=== PATIENT | female | born 1990 | race Caucasian/White ===

== ENCOUNTER 2017-04-07 10:05 | Emergency (ER) | payer BC ==
[~2017-04-07] VITALS: Ht 165.1 cm; Wt 69.0 kg
[~2017-04-07 10:05] MED LIST: DICL75 PO
[2017-04-07 10:09] VITALS: BP 136/71; PULSE 101; RESP 18; TEMP 98.3; O2SAT 97
--- NOTE | 2017-04-07 10:58 | PD ---
HPI Chief Complaint: Laceration/Skin Injury Time Seen by Provider: 10:44 Travel History International Travel<30 days: No Contact w/Intl Traveler<30days: No Traveled to known affect area: No History of Present Illness HPI Patient comes to emergency department complaining of laceration to her left forearm that occurred around 3 AM. Patient states that she got locked out of her house and was unable to get inside and had to break a window to get in the house. Patient reports cleaning this with soap and water prior to coming to the emergency department. Patient denies any pain with this or radiation of pain. Touching it makes it hurt without radiation. Denies any numbness or tingling. Reports last tetanus shot more than 5 years ago. PFS Past Medical History Autoimmune Disease: No Blood Disorders: No Cardiovascular Problems: Yes (HEART MURMUR) Diminished Hearing: No Gastrointestinal Disorders: Yes Immunizations Current: Yes ?: Not LMP: 03/02/2017-IRREGULAR PER PT Past Surgical History Surgical History: No Previous Surgery Abdominal Surgery: No Genitourinary Surgery: No Other Surgery: No Social History Alcohol Use: Yes (COUPLE TIMES PER WEEK) Tobacco Use: No Substance Use: No Allergies-Medications (Allergen,Severity, Reaction): Coded Allergies: apple (Verified Allergy, Severe, THROAT SWELLING, 04/07/17) nut - unspecified (Verified Allergy, Severe, THROAT SWELLING, 04/07/17) strawberry (Verified Allergy, Severe, THROAT SWELLING, 04/07/17) Reported Meds & Prescriptions Reported Meds & Active Scripts Active No Active Prescriptions or Reported Medications Review of Systems Except as stated in HPI: all other systems reviewed are Neg Physical Exam Narrative GENERAL: Well-developed, overly nourished, in no acute distress, and non-ill appearing. SKIN: V-shaped laceration over the volar surface of the left distal forearm. No foreign body. No crepitus. Neurovascular intact distally. HEAD: Atraumatic. Normocephalic. EYES: Pupils equal and round. EOMI. No scleral icterus. No injection or drainage. ENT: No nasal bleeding or discharge. Mucous membranes pink and moist. NECK: Trachea midline. Supple. No nuclear rigidity. CARDIOVASCULAR: Radial and ulnar pulses 2+, intact, and equal bilaterally. Capillary refill less than 2 seconds. MUSCULOSKELETAL: No obvious deformities. No clubbing. No cyanosis. No edema. Full range of motion. NEUROLOGICAL: Awake and alert. No obvious cranial nerve deficits. Motor grossly within normal limits. Normal speech. PSYCHIATRIC: Appropriate mood and affect; insight and judgment normal. Data Data Last Documented VS Vital Signs Date Time Temp Pulse Resp B/P (MAP) Pulse Ox O2 Delivery O2 Flow Rate FiO2 04/07/17 10:09 98.3 101 18 136/71 (92) 97 Orders Orders Lidocai-Epi 1%-1:100,000 Inj (Xylocaine- (04/07/17 11:00) Tetanus/Diphtheria Tox Adult (Tetanus/Di (04/07/17 11:00) Lidocai-Epi 1%-1:100,000 Inj (Xylocaine- (04/07/17 11:06) Lidocai-Epi 1%-1:100,000 Inj (Xylocaine- (04/07/17 11:15) Ondansetron Odt (Zofran Odt) (04/07/17 11:30) Ed Discharge Order (04/07/17 12:15) MDM Medical Decision Making Medical Screen Exam Complete: Yes Emergency Medical Condition: Yes Differential Diagnosis Laceration, abrasion, contusion, foreign body, skin tear Narrative Course The patient suffered laceration to the extremity. There was no evidence to suggest foreign bodies. Visual and tactile exams were unremarkable without evidence of foreign body at this time. There was no evidence of neurovascular injury. The patient had a normal distal vascular exam, and had full normal motor and sensory exams. There was also no evidence or tendon injury, with normal distal full range of motions, flexion, extension, abduction, adduction and opponens. There was no evidence of local joint space involvement at this time. The patient was irrigated with copious sterile normal saline and primary repair was performed. Please see procedure note. The patient was given signs and symptom warnings for infection, such as increasing pain, redness, swelling, associated heat, pus or fever. The patient was warned of possible unseen foreign body and instructed to return immediately if signs or symptoms develop. The patient was given instructions for timely follow up and for removal. The patient agreed with plan of care. Patient in no obvious distress upon re-evaluation. Any questions/concerns in reference to patient diagnosis/condition discussed and clarified prior to patient's discharge. Discussed patient with Dr. Cherry prior to discharge, who saw and evaluate patient and is in agreement with plan of care and disposition. Reinforced sheer importance of close follow up with patient's primary physician or primary care clinic. Instructed patient to return to ED immediately, if symptoms return/worsen. Patient showed understanding of above instructions. Further instructions and recommendations were detailed in discharge paperwork. Patient ambulated without difficulty out of ED at discharge. Procedures Procedure Narrative LACERATION REPAIR LOCATION: Left distal forearm volar surface LENGTH: Approximately 8 cm in V-shaped and total length NUMBER OF STITCHES/ELISABETH: 11 simple interrupted REPAIR: Verbal consent was obtained. The area of the laceration was cleaned and prepped. The laceration was infiltrated with lidocaine with epi. The wound was copiously irrigated and explored without evidence of foreign body, bony involvement, ligament injury, tendon injury, or neurovascular injury. The wound was closed using 3-0 Prolene by fourth-year medical student Jessica under my supervision. This was a single layer repair. A sterile dressing was applied by nurse. The patient was advised to keep the affected area as clean and dry as possible using soap and water. There were no complications. Patient tolerated the procedure well. Diagnosis Primary Impression: Laceration of left forearm without foreign body Qualified Codes: S51.812A - Laceration without foreign body of left forearm, initial encounter Referrals: [facility] Patient Instructions: Care For Your Stitches (ED), General Instructions, Laceration (ED) Additional Instructions: Follow-up with your primary care physician or return here in 10-14 days for suture removal. Keep wound dry and clean as possible using soap and water. Use Neosporin to promote healing. Do not soak or submerge wound. Return to the emergency department if symptoms get worse. Scripts No Active Prescriptions or Reported Meds Disposition: 01 DISCHARGE HOME Condition: Stable Caesar Willis Apr 07, 2017 10:58
[2017-04-07] MEDS ORDERED: LIDOCAINE 1%/EPINEPHrine 1:100,000 SOLN 20 ML VIAL INFIL ONE (11:00)
[2017-04-07] MEDS ORDERED: TETANUS/DIPHTHERIA TOXOID ADULT 0.5 ML VIAL IM ONE (11:00)
[2017-04-07] MEDS ORDERED: LIDOCAINE 1%/EPINEPHrine 1:100,000 SOLN 30 ML VIAL ONE (11:06)
[2017-04-07] MEDS ORDERED: LIDOCAINE 1%/EPINEPHrine 1:100,000 SOLN 50 ML VIAL INFIL ONE (11:15)
[2017-04-07] MEDS ORDERED: ONDANSETRON ODT 4 MG TAB PO ONE (11:30)
== END 2017-04-07 12:30 | disposition home or self-care (01) ==
LOC: PHED 10:05 → PHEFT 12:30
DX: S51.812A Laceration without foreign body of left forearm, initial encounter (principal); Z23 Encounter for immunization; W25.XXXA Contact with sharp glass, initial encounter; Y92.009 Unspecified place in unspecified non-institutional (private) residence as the place of occurrence of the external cause
CPT/HCPCS: 12004; 90471; 90714

== ENCOUNTER 2017-07-12 09:32 | Emergency (ER) | payer BC ==
[2017-07-12 09:58] VITALS: BP 122/59; PULSE 83; RESP 16; TEMP 98.3; O2SAT 98
--- NOTE | 2017-07-12 11:27 | RADRPT ---
EXAM DATE/TIME: 07/12/2017 11:10 [facility] COMPARISON: No previous studies available for comparison. INDICATIONS : Right knee pain and laceration from glass. MEDICAL HISTORY : None. SURGICAL HISTORY : None. ENCOUNTER: Initial ACUITY: 1 day PAIN SCORE: 0/10 LOCATION: Right knee. FINDINGS: Four view examination of the right knee demonstrates no evidence of fracture or dislocation. Bony mi neralization is normal. The articular surfaces are intact. There is a laceration along the lateral a spect of the knee at the level of the lateral femoral condyle. No evidence of retained foreign body. A laceration appears superficial CONCLUSION: Laceration within the superficial lateral soft tissues. No retained foreign body. No osseous injury s een. Anahi Greenwood MD on July 12, 2017 at 11:22 Board Certified Radiologist. This report was verified electronically.
--- NOTE | 2017-07-12 12:11 | PD ---
HPI Chief Complaint: Laceration/Skin Injury Time Seen by Provider: 10:47 Travel History International Travel<30 days: No Contact w/Intl Traveler<30days: No Traveled to known affect area: No History of Present Illness HPI 26-year-old female here with a laceration to her right lateral knee caused by broken glass at 3 AM. She reports she was attempting to crawl through a window when the glass broke cutting the knee. Denies altered sensation or weakness of the extremity. Her tetanus immunization is up-to-date. Bleeding is well controlled. She reports mild pain at the site of laceration. No aggravating or alleviating factors. She is able to ambulate without difficulty. PFSH Past Medical History Autoimmune Disease: No Blood Disorders: No Cardiovascular Problems: Yes (HEART MURMUR) Diminished Hearing: No Gastrointestinal Disorders: Yes Immunizations Current: Yes ?: Not LMP: 07/08/17 Past Surgical History Abdominal Surgery: No Genitourinary Surgery: No Other Surgery: No Social History Alcohol Use: Yes (COUPLE TIMES PER WEEK) Tobacco Use: No Substance Use: No Allergies-Medications (Allergen,Severity, Reaction): Coded Allergies: apple (Verified Allergy, Severe, THROAT SWELLING, 07/12/17) nut - unspecified (Verified Allergy, Severe, THROAT SWELLING, 07/12/17) strawberry (Verified Allergy, Severe, THROAT SWELLING, 07/12/17) Reported Meds & Prescriptions Reported Meds & Active Scripts Active No Active Prescriptions or Reported Medications Review of Systems General / Constitutional: No: Fever Eyes: No: Visual changes HENT: No: Headaches Cardiovascular: No: Chest Pain or Discomfort Respiratory: No: Shortness of Breath Gastrointestinal: No: Abdominal Pain Genitourinary: No: Dysuria Physical Exam Narrative GENERAL: Alert and well-appearing 26-year-old female SKIN: Warm and dry. HEAD: Normocephalic. Atraumatic EYES: Pupils equal, round, reactive to light. EOMs intact. No scleral icterus. No injection or drainage. NECK: Supple, trachea midline. No cervical midline tenderness. CARDIOVASCULAR: Regular rate and rhythm without murmurs, gallops, or rubs. No chest wall tenderness. RESPIRATORY: Breath sounds equal bilaterally. No accessory muscle use. GASTROINTESTINAL: Abdomen soft, non-tender, nondistended. MUSCULOSKELETAL: No cyanosis, or edema. RLE: 3 cm U-shaped laceration to the right lateral knee. No joint penetration suspected. No vascular tendon injury. She is able to flex and extend the knee without difficulty. Palpable distal pulses. Normal sensation with sharp dull discrimination. Brisk cap refill. BACK: Nontender without obvious deformity. No CVA tenderness. Data Data Last Documented VS Vital Signs Date Time Temp Pulse Resp B/P (MAP) Pulse Ox O2 Delivery O2 Flow Rate FiO2 07/12/17 09:58 98.3 83 16 122/59 (80) 98 Orders Orders Knee, Complete (4vws) (07/12/17 ) [facility] Medical Decision Making Medical Screen Exam Complete: Yes Emergency Medical Condition: Yes Differential Diagnosis This laceration, tendon injury, vascular injury, retained foreign body Narrative Course This is a 26-year-old female with a laceration to her right knee. The extremity is neurovascularly intact. No joint penetration is suspected. X- rays negative for radiopaque foreign body. Laceration repair performed. Return precautions discussed. Patient verbalized understanding and agrees to plan Procedures Procedure Narrative LACERATION LOCATION: Right lateral knee LENGTH: 3 cm U-shaped NUMBER OF STITCHES/ELISABETH: 12 REPAIR: The area of the laceration was prepped with Betadine and sterilely draped. The laceration was infiltrated with 1% lidocaine with epi. The wound was copiously irrigated and explored without evidence of foreign body, tendon injury or neurovascular injury. The wound was closed using 3-0 Ethilon. This was a single layer repair. A sterile dressing was applied. The patient was advised to keep the dressing clean and dry. Patient tolerated the procedure well. Diagnosis Primary Impression: Laceration of right lower extremity Qualified Codes: S81.811A - Laceration without foreign body, right lower leg, initial encounter Referrals: Primary Care Physician Additional Instructions: Sutures need to be removed and 10 days Do not submerge the wound in water (showering is okay) Cleanse the area daily with soap and water. Apply clean dry dressing. Return if he develop new or worsening symptoms Scripts No Active Prescriptions or Reported Meds Disposition: 01 DISCHARGE HOME Condition: Stable Joana Moon July 12, 2017 12:11
== END 2017-07-12 12:39 | disposition home or self-care (01) ==
LOC: PHEFT 09:32
DX: S81.811A Laceration without foreign body, right lower leg, initial encounter (principal); W25.XXXA Contact with sharp glass, initial encounter
CPT/HCPCS: 12002; 73564